=== PATIENT | male | born 1955 | race Caucasian/White ===

== ENCOUNTER 2022-04-04 00:14 | Inpatient (IN) | payer MEDICAID ==
[~2022-04-04] VITALS: Ht 160 cm; Wt 58.7 kg
[2022-04-04] VITALS (43 sets, daily range): BP systolic 119–153; BP diastolic 62–99
[2022-04-04] MEDS ORDERED: FUROSEMIDE 40MG/4ML VIAL IV ONE (00:30)
[2022-04-04] MEDS ORDERED: NITROGLYCERIN 50MG PREMIX 250 ML IV ONE ×2 (00:30→01:00)
[2022-04-04 00:56] LABS: BASOPHILS % 0.7 % (0.0-2.0); EOSINOPHILS % 3.2 % (0.0-5.0); HEMATOCRIT. 46.5 % (42.0-52.0); HEMOGLOBIN. 15.8 g/dL (14.0-18.0); LYMPHOCYTES % 23.1 % (20.0-50.0); MEAN CORPUSCULAR HEMOGLOBIN 30.9 pg (28.0-32.0); MEAN CORPUSCULAR VOLUME 91.2 fL (80.0-94.0); MEAN PLATELET VOLUME 8.8 fl (7.4-10.4); MONOCYTES % 6.6 % (2.0-8.0); NEUTROPHILS % 66.4 % (40.0-76.0); PLATELET 199 x1000/uL (130-400); RED CELL DISTRIBUTION WIDTH 13.3 % (11.6-14.6)
[2022-04-04] MEDS ORDERED: NITROGLYCERIN 50MG PREMIX 250 ML IV NR (01:00)
[2022-04-04 01:01] LABS: CHLORIDE 109 mEq/L (98-107)
[2022-04-04] MEDS ORDERED: HEPARIN 5000 UNITS/ML VIAL IV ONE (05:45)
[2022-04-04] MEDS ORDERED: HEPARIN 25,000 UNITS PREMIX 250 ML IV ONE (05:45)
[2022-04-04] MEDS ORDERED: HEPARIN BOLUS PRN aPTT <30 IV (06:00)
[2022-04-04] MEDS ORDERED: HEPARIN BOLUS PRN aPTT 30-44 IV (06:00)
[2022-04-04] MEDS: HEPARIN 60 UNITS/KG BOLUS IV NR ×2 (06:15→07:20)
[2022-04-04 06:24] LABS: PROTHROMBIN TIME 10.6 sec (9.6-11.0)
[2022-04-04] MEDS ORDERED: ACETAMINOPHEN 325MG TABLET PO PRN ×2 (10:30)
[2022-04-04] MEDS ORDERED: GUAIFENESIN 200MG/10ML SUGAR FREE UDC PO PRN (10:30)
[2022-04-04] MEDS ORDERED: HYDROCODONE/ACETAMINOPHEN 5/325MG TABLET PO PRN (10:30)
[2022-04-04] MEDS ORDERED: MAGNESIUM/ALUMINUM HYDROXIDE/SIMETHICONE 30ML UDC PO PRN (10:30)
[2022-04-04] MEDS ORDERED: IPRATROPIUM/ALBUTEROL 0.5-3(2.5)MG/3ML NEB HHN PRN (10:30)
[2022-04-04] MEDS ORDERED: ONDANSETRON HCL 4MG/2ML INJ IV PRN (10:30)
[2022-04-04] MEDS ORDERED: NA PHOS,M-B/NA PHOS,DI-BA ENEMA 118ML PR PRN (10:30)
[2022-04-04] MEDS ORDERED: CLONIDINE 0.1MG TABLET PO PRN (10:30)
[2022-04-04] MEDS ORDERED: DOCUSATE SODIUM 100MG CAPSULE PO PRN (10:30)
[2022-04-04] MEDS ORDERED: NALOXONE HCL 0.4MG/ML VIAL IV PRN (10:45)
[2022-04-04 13:20] LABS: D-DIMER 0.21 mg/L FEU (<0.50)
[2022-04-04] MEDS ORDERED: GABA-529 PO (13:52)
[2022-04-04] MEDS ORDERED: TOPUD PO (13:52)
[2022-04-04] MEDS ORDERED: TAMS-11 PO (14:45)
[2022-04-04] MEDS ORDERED: HEPARIN 25,000 UNITS PREMIX 250 ML IV SCH (15:15)
[2022-04-04] MEDS ORDERED: NITROGLYCERIN 50MG PREMIX 250 ML IV PRN ×2 (15:15)
[2022-04-04] MEDS: TAMSULOSIN HCL 0.4MG SR CAPSULE PO SCH (15:45)
[2022-04-04] MEDS: HEPARIN 25,000 UNITS PREMIX 250 ML IV SCH (16:45)
[2022-04-04 18:52] LABS: CREATINE KINASE MB FRACTION 5.5 ng/mL (0.5-3.6); PHOSPHORUS 2.9 mg/dL (2.5-4.9)
[2022-04-04] MEDS: FAMOTIDINE 20MG/2ML VIAL IV SCH (21:05)
[2022-04-04] MEDS: ATORVASTATIN CALCIUM 40MG TABLET PO SCH (21:05)
[2022-04-04] MEDS: GABAPENTIN 100MG CAPSULE PO SCH (21:05)
[2022-04-05] VITALS (92 sets, daily range): BP systolic 115–174; BP diastolic 60–128
[2022-04-05 00:26] LABS: CLARITY URINE CLEAR (CLEAR); COLOR URINE DARK YELLOW (YELLOW); KETONES URINE 1+ (NEGATIVE); LEUKOCYTE ESTERASE URINE TRACE (NEGATIVE); NITRITE URINE NEGATIVE (NEGATIVE); OCCULT BLOOD URINE NEGATIVE (NEGATIVE); PH URINE 5.5 (4.5-8.0); PROTEIN URINE TRACE (NEGATIVE); SPECIFIC GRAVITY URINE 1.022 (1.005-1.030)
[2022-04-05 00:43] LABS: *AMPHETAMINES SCREEN URINE NEGATIVE (NEGATIVE); *BARBITURATES SCREEN URINE NEGATIVE (NEGATIVE); *BENZODIAZEPINES SCREEN URINE NEGATIVE (NEGATIVE); *COCAINE SCREEN URINE NEGATIVE (NEGATIVE); CANNABINOID URINE SCREEN NEGATIVE (NEGATIVE); METHADONE URINE SCREEN NEGATIVE (NEGATIVE); OPIATES URINE SCREEN NEGATIVE (NEGATIVE); PHENCYCLIDINE URINE SCREEN NEGATIVE (NEGATIVE)
[2022-04-05 01:32] LABS: CREATINE KINASE MB FRACTION 3.8 ng/mL (0.5-3.6)
[2022-04-05 05:37] LABS: CHLORIDE 109 mEq/L (98-107)
[2022-04-05 05:37] LABS: BASOPHILS % 0.7 % (0.0-2.0); EOSINOPHILS % 2.3 % (0.0-5.0); HEMATOCRIT. 40.6 % (42.0-52.0); HEMOGLOBIN. 13.8 g/dL (14.0-18.0); LYMPHOCYTES % 18.2 % (20.0-50.0); MEAN CORPUSCULAR HEMOGLOBIN 30.8 pg (28.0-32.0); MEAN CORPUSCULAR VOLUME 90.4 fL (80.0-94.0); MONOCYTES % 6.6 % (2.0-8.0); NEUTROPHILS % 72.2 % (40.0-76.0); PLATELET 166 x1000/uL (130-400); RED BLOOD CELL COUNT 4.49 mill/uL (4.7-6.1); RED CELL DISTRIBUTION WIDTH 13.3 % (11.6-14.6)
[2022-04-05 05:43] LABS: CREATINE KINASE MB FRACTION 3.1 ng/mL (0.5-3.6)
[2022-04-05 05:55] LABS: HDL CHOLESTEROL 53 mg/dL (40-59); LDL CHOLESTEROL 112 mg/dL (5-100); T4 FREE 1.06 ng/dL (0.76-1.46)
[2022-04-05] MEDS ORDERED: PANTOPRAZOLE SODIUM 40 MG/VIAL IV SCH (06:00)
[2022-04-05 06:12] LABS: VITAMIN B12 SERUM 458 pg/mL (211-911)
[2022-04-05 06:25] LABS: FOLIC ACID (FOLATE) SERUM > 20.00 ng/mL (>5.38)
[2022-04-05] MEDS: GABAPENTIN 100MG CAPSULE PO SCH ×3 (06:34→21:33)
[2022-04-05] MEDS: FAMOTIDINE 20MG/2ML VIAL IV SCH ×2 (08:38→21:33)
[2022-04-05] MEDS: TAMSULOSIN HCL 0.4MG SR CAPSULE PO SCH (08:39)
[2022-04-05] MEDS ORDERED: POTASSIUM CHLORIDE 20MEQ TABLET SR PO SCH (09:00)
[2022-04-05] MEDS ORDERED: DEXT 5%/0.45% NACL 1000ML 1,000 ML IV ONE (10:00)
[2022-04-05] MEDS: ASPIRIN 81MG TABLET PO SCH (11:37)
[2022-04-05] MEDS: LOSARTAN POTASSIUM 25 MG TABLET PO SCH (11:37)
[2022-04-05] MEDS: FUROSEMIDE 40MG/4ML VIAL IVP SCH (11:38)
[2022-04-05] MEDS: HEPARIN 25,000 UNITS PREMIX 250 ML IV SCH (14:32)
[2022-04-05] MEDS: ATORVASTATIN CALCIUM 40MG TABLET PO SCH (21:33)
[2022-04-06] VITALS (97 sets, daily range): BP systolic 112–181; BP diastolic 60–126
[2022-04-06] MEDS: GABAPENTIN 100MG CAPSULE PO SCH ×3 (06:00→21:23)
[2022-04-06 06:19] LABS: HEMATOCRIT 41.9 % (42.0-52.0); HEMOGLOBIN 14.5 g/dL (14.0-18.0); MEAN CORPUSCULAR HEMOGLOBIN 31.3 pg (28.0-32.0); MEAN CORPUSCULAR VOLUME 90.6 fL (80.0-94.0); PLATELET 163 x1000/uL (130-400); RED BLOOD CELL COUNT 4.63 mill/uL (4.7-6.1); RED CELL DISTRIBUTION WIDTH 12.9 % (11.6-14.6)
[2022-04-06 06:26] LABS: CHLORIDE 108 mEq/L (98-107)
[2022-04-06] MEDS: CARVEDILOL 6.25 MG TABLET PO SCH ×2 (08:31→20:40)
[2022-04-06] MEDS: ISOSORBIDE MONONITRATE 30MG TABLET SR 24HR PO SCH (08:31)
[2022-04-06] MEDS: LOSARTAN POTASSIUM 25 MG TABLET PO SCH (08:31)
[2022-04-06] MEDS: TAMSULOSIN HCL 0.4MG SR CAPSULE PO SCH (08:31)
[2022-04-06] MEDS: ASPIRIN 81MG TABLET PO SCH (08:31)
[2022-04-06] MEDS: ENOXAPARIN 40MG/0.4ML SYR SUBCUT SCH (08:32)
[2022-04-06] MEDS: FUROSEMIDE 40MG/4ML VIAL IVP SCH (08:33)
[2022-04-06] MEDS: FAMOTIDINE 20MG/2ML VIAL IV SCH ×2 (08:33→20:39)
[2022-04-06] MEDS ORDERED: IODIXANOL 320MG/ML 100 ML BOTTLE IV ONE ×2 (09:44→09:50)
[2022-04-06] MEDS ORDERED: LIDOCAINE HCL/PF 1% 10 MG/ML 5ML VIAL ONE (09:45)
[2022-04-06] MEDS ORDERED: MIDAZOLAM HCL 2 MG/2 ML VIAL ONE (09:50)
[2022-04-06] MEDS ORDERED: FENTANYL CITRATE/PF 50MCG/ML 2ML VIAL ONE (09:50)
[2022-04-06] MEDS ORDERED: HEPARIN 1000 UNITS/ML 10ML ONE (09:50)
[2022-04-06] MEDS ORDERED: ATROPINE SULFATE 1MG/10ML SYR IV PRN (10:45)
[2022-04-06] MEDS: AMLODIPINE 5MG TABLET PO SCH (20:39)
[2022-04-06] MEDS: ATORVASTATIN CALCIUM 40MG TABLET PO SCH (20:40)
[2022-04-07] VITALS (25 sets, daily range): BP systolic 105–157; BP diastolic 58–92
[2022-04-07 05:29] LABS: BASOPHILS % 0.6 % (0.0-2.0); EOSINOPHILS % 2.6 % (0.0-5.0); HEMATOCRIT. 43.2 % (42.0-52.0); LYMPHOCYTES % 11.6 % (20.0-50.0); MEAN CORPUSCULAR VOLUME 89.6 fL (80.0-94.0); MEAN PLATELET VOLUME 8.9 fl (7.4-10.4); MONOCYTES % 9.3 % (2.0-8.0); NEUTROPHILS % 75.9 % (40.0-76.0); PLATELET 168 x1000/uL (130-400); RED BLOOD CELL COUNT 4.82 mill/uL (4.7-6.1); RED CELL DISTRIBUTION WIDTH 13.1 % (11.6-14.6)
[2022-04-07 05:37] LABS: CHLORIDE 106 mEq/L (98-107)
[2022-04-07 05:42] LABS: PHOSPHORUS 3.4 mg/dL (2.5-4.9)
[2022-04-07] MEDS: GABAPENTIN 100MG CAPSULE PO SCH (05:45)
[2022-04-07] MEDS: ASPIRIN 81MG TABLET PO SCH (08:06)
[2022-04-07] MEDS: AMLODIPINE 5MG TABLET PO SCH (08:06)
[2022-04-07] MEDS: FAMOTIDINE 20MG/2ML VIAL IV SCH (08:06)
[2022-04-07] MEDS: FUROSEMIDE 40MG/4ML VIAL IVP SCH (08:07)
[2022-04-07] MEDS: ISOSORBIDE MONONITRATE 30MG TABLET SR 24HR PO SCH (08:07)
[2022-04-07] MEDS: TAMSULOSIN HCL 0.4MG SR CAPSULE PO SCH (08:07)
[2022-04-07] MEDS: ENOXAPARIN 40MG/0.4ML SYR SUBCUT SCH (08:07)
[2022-04-07] MEDS: CARVEDILOL 6.25 MG TABLET PO SCH (08:07)
[2022-04-07] MEDS: LOSARTAN POTASSIUM 25 MG TABLET PO SCH (08:07)
[2022-04-07] MEDS ORDERED: LIP40 PO (10:10)
[2022-04-07] MEDS ORDERED: TAMS-11 PO (10:10)
[2022-04-07] MEDS ORDERED: COR6 PO (10:10)
[2022-04-07] MEDS ORDERED: ASPI-1160 PO (10:10)
[2022-04-07] MEDS ORDERED: AMLO5TAB88 PO (10:10)
[2022-04-07] MEDS ORDERED: LOSA25TA3 PO (10:10)
== END 2022-04-07 12:10 | disposition home or self-care (01) | DRG 192 ==
LOC: EDBD 00:14 → ER 00:14 → CVICU 02:05 → ENRESERV 10:13
PROVIDERS: ADMIT Internal Medicine; ATTEND Internal Medicine
PROC: 5A09357 Assistance with Respiratory Ventilation, Less than 24 Consecutive Hours, Continuous Positive Airway Pressure (ICD-10-PCS; principal; 2022-04-04)
PROC: 4A00X4Z Measurement of Central Nervous Electrical Activity, External Approach (ICD-10-PCS; 2022-04-05)
PROC: 4A023N7 Measurement of Cardiac Sampling and Pressure, Left Heart, Percutaneous Approach (ICD-10-PCS; 2022-04-06)
PROC: B2111ZZ Fluoroscopy of Multiple Coronary Arteries using Low Osmolar Contrast (ICD-10-PCS; 2022-04-06)
PROC: B2151ZZ Fluoroscopy of Left Heart using Low Osmolar Contrast (ICD-10-PCS; 2022-04-06)
DX: I11.0 Hypertensive heart disease with heart failure (principal); J96.01 Acute respiratory failure with hypoxia; E83.51 Hypocalcemia; I69.354 Hemiplegia and hemiparesis following cerebral infarction affecting left non-dominant side; D69.6 Thrombocytopenia, unspecified; Z20.822 Contact with and (suspected) exposure to COVID-19; I50.31 Acute diastolic (congestive) heart failure; I16.1 Hypertensive emergency; N40.0 Benign prostatic hyperplasia without lower urinary tract symptoms; E78.5 Hyperlipidemia, unspecified; R73.9 Hyperglycemia, unspecified; R78.5 Finding of other psychotropic drug in blood; I44.7 Left bundle-branch block, unspecified; Z28.310 Unvaccinated for COVID-19; Z79.899 Other long term (current) drug therapy
CPT/HCPCS: 36415; 71045; 80048; 80053; 80061; 80305; 81003; 82550; 82553; 82607; 82746; 83036; 83605; 83735; 83880; 84100; 84439; 84443; 84484; 85025; 85027; 85379; 86850; 86900; 87426; 87804; 93005; 93306; 93458; 93880; 93970; 95816; 99291; C1769; C1887; C1893; C9803; J1644; J1650; J1940; J2250; J3010; J3490; Q9967

== ENCOUNTER 2023-03-10 02:47 | Inpatient (IN) | payer MEDICAID ==
[2023-03-10] VITALS (60 sets, daily range): BP systolic 97–155; BP diastolic 56–102; PULSE 68–104; RESP 10–28; TEMP 97.9–99.2
[~2023-03-10] VITALS: Ht 162.6 cm; Wt 59.0 kg
[~2023-03-10 02:47] MED LIST: AMLO5TAB88 PO; ASPI-1160 PO; COR6 PO; GABA-529 PO; LIP40 PO; LOSA-412 PO; TAMS-11 PO; TOPUD PO
[2023-03-10] MEDS ORDERED: METHYLPREDNISOLONE SOD SUCC 125MG/2ML (ACT-O-VIAL) IV STA (02:59)
[2023-03-10] MEDS ORDERED: NITROGLYCERIN 50MG PREMIX 250 ML IV NR (03:15)
[2023-03-10] MEDS ORDERED: NITROGLYCERIN 50MG PREMIX 250 ML IV ONE (03:15)
[2023-03-10 03:21] LABS: BASOPHILS % 1.2 % (0.0-2.0); EOSINOPHILS % 2.4 % (0.0-5.0); HEMATOCRIT. 46.1 % (42.0-52.0); HEMOGLOBIN. 15.9 g/dL (14.0-18.0); LYMPHOCYTES % 21.1 % (20.0-50.0); MEAN CORPUSCULAR HEMOGLOBIN 31.7 pg (28.0-32.0); MEAN CORPUSCULAR HGB CONC 34.6 g/dL (31.0-37.0); MEAN CORPUSCULAR VOLUME 91.5 fL (80.0-94.0); MEAN PLATELET VOLUME 8.5 fl (7.4-10.4); MONOCYTES % 3.6 % (2.0-8.0); NEUTROPHILS % 71.7 % (40.0-76.0); PLATELET 210 x1000/uL (130-400); RED BLOOD CELL COUNT 5.03 mill/uL (4.7-6.1); RED CELL DISTRIBUTION WIDTH 13.2 % (11.6-14.6); WHITE BLOOD COUNT 7.9 x1000/uL (4.5-11.0)
[2023-03-10 03:34] LABS: ALANINE AMINOTRANSFERASE 7 IU/L (10-49); ALBUMIN 4.2 g/dL (3.2-4.8); ASPARTATE AMINOTRANSFERASE 18 IU/L (<34); BILIRUBIN TOTAL 1.1 mg/dL (0.1-1.0); CALCIUM 8.8 mg/dL (8.7-10.4); CARBON DIOXIDE 26 mEq/L (21-32); CHLORIDE 107 mEq/L (98-107); GLUCOSE 189 mg/dL (70-105); POTASSIUM 3.8 mEq/L (3.5-5.1); PROTEIN TOTAL 7.1 g/dL (6.0-8.3); SODIUM 142 mEq/L (136-145); UREA NITROGEN BLOOD 21 mg/dL (9-23)
[2023-03-10 04:01] LABS: TROPONIN I HIGH SENSITIVITY 587 ng/L (3.0-53)
[2023-03-10 06:26] LABS: TROPONIN I HIGH SENSITIVITY 2328 ng/L (3.0-53)
[2023-03-10] MEDS ORDERED: SODIUM CHLORIDE 0.9% 250 ML IV ONE (06:30)
[2023-03-10] MEDS ORDERED: AZITHROMYCIN 500MG/250ML 250 ML IV ONE (06:30)
[2023-03-10] MEDS ORDERED: HEPARIN 25,000 UNITS PREMIX 250 ML IV ONE (06:30)
[2023-03-10] MEDS ORDERED: CEFTRIAXONE 1GM PREMIX 50 ML IV ONE (06:30)
[2023-03-10] MEDS ORDERED: HEPARIN 5000 UNITS/ML VIAL IV ONE (06:30)
[2023-03-10] MEDS ORDERED: HEPARIN 5000 UNITS/ML VIAL IV SCH (07:00)
[2023-03-10 07:09] LABS: PARTIAL THROMBOPLASTIN TIME 29.1 sec (23.4-31.0); PROTHROMBIN TIME 10.8 sec (9.6-11.0)
[2023-03-10] MEDS ORDERED: HEPARIN 25,000 UNITS PREMIX 250 ML IV SCH (07:45)
[2023-03-10] MEDS ORDERED: CEFTRIAXONE 1GM PREMIX 50 ML IV SCH (08:00)
[2023-03-10] MEDS ORDERED: ACETAMINOPHEN 325MG TABLET PO PRN (09:00)
[2023-03-10] MEDS ORDERED: AZITHROMYCIN 500 MG in DEXT 5% WATER 250 ML IV SCH (09:00)
[2023-03-10] MEDS ORDERED: ONDANSETRON HCL 4MG/2ML INJ IV PRN (09:00)
[2023-03-10] MEDS ORDERED: DIPHENHYDRAMINE 50MG/ML VIAL IV PRN (09:00)
[2023-03-10 10:44] LABS: BG BASE EXCESS -0.5 mmol/L (-2.0-2.0); BG CARBOXYHEMOGLOBIN 0.3 % (0.5-1.5); BG FRACTION INSPIRED OXYGEN 100; BG HCO3 ACT 23.8 mmol/L (22.0-26.0); BG METHEMOGLOBIN 0.4 % (0.0-1.5); BG OXYHEMOGLOBIN 98.3 % (94.0-97.0); BG PCO2 38.3 mmHg (35.0-45.0); BG PH 7.411 (7.350-7.450); BG PO2 181.1 mmHg (75.0-100.0); BG SAMPLE SITE RIGHT RADIAL; BG TOTAL HEMOGLOBIN 15.5 g/dL (12.0-18.0); BG VENT MODE MASK - NRB
[2023-03-10] MEDS: MORPHINE SULFATE 2 MG/ML CPJ (NOT FOR IM USE) IV PRN ×2 (10:53→15:16)
[2023-03-10] MEDS ORDERED: HYDRALAZINE 20MG/ML VIAL IV PRN (11:45)
[2023-03-10] MEDS: AMLODIPINE 10MG TABLET PO SCH (12:40)
[2023-03-10] MEDS ORDERED: NITROGLYCERIN 50MG PREMIX 250 ML IV PRN (13:00)
[2023-03-10] MEDS ORDERED: HEPARIN BOLUS PRN aPTT 30-44 IV (14:00)
[2023-03-10] MEDS ORDERED: HEPARIN BOLUS PRN aPTT <30 IV (14:00)
[2023-03-10] MEDS ORDERED: ENOXAPARIN 80MG/0.8ML SYR SUBCUT SCH (14:00)
[2023-03-10 15:05] LABS: *AMPHETAMINES SCREEN URINE NEGATIVE (NEGATIVE); *BARBITURATES SCREEN URINE NEGATIVE (NEGATIVE); *BENZODIAZEPINES SCREEN URINE NEGATIVE (NEGATIVE); *COCAINE SCREEN URINE NEGATIVE (NEGATIVE); CANNABINOID URINE SCREEN NEGATIVE (NEGATIVE); ECSTASY MDMA SCREEN URINE NEGATIVE (NEGATIVE); METHADONE URINE SCREEN Neg (NEGATIVE); OPIATES URINE SCREEN PRESUMPTIVE POSITIVE (NEGATIVE); PHENCYCLIDINE URINE SCREEN NEGATIVE (NEGATIVE)
[2023-03-10] MEDS: ENOXAPARIN 80MG/0.8ML SYR SUBCUT SCH (15:14)
[2023-03-10] MEDS: HYDRALAZINE HCL 50MG TABLET PO SCH ×2 (15:14→21:31)
[2023-03-10] MEDS ORDERED: AZITHROMYCIN 500MG/250ML 250 ML IV SCH (16:00)
[2023-03-10] MEDS: FUROSEMIDE 40MG/4ML VIAL IVP SCH (16:26)
[2023-03-10 18:30] LABS: D-DIMER < 0.19 mg/L FEU (<0.50); PARTIAL THROMBOPLASTIN TIME 44.4 sec (23.4-31.0)
[2023-03-10 18:50] LABS: T4 FREE 1.01 ng/dL (0.89-1.76); THYROID STIMULATING HORMONE 0.47 uIU/mL (0.55-4.78)
[2023-03-10] MEDS: ATORVASTATIN CALCIUM 40MG TABLET PO SCH (21:29)
[2023-03-10] MEDS: TRAZODONE HCL 50MG TABLET PO SCH (21:29)
[2023-03-10] MEDS: GABAPENTIN 300MG CAPSULE PO SCH (21:29)
[2023-03-11] VITALS (46 sets, daily range): BP systolic 99–153; BP diastolic 54–95; PULSE 60–102; RESP 0–30; TEMP 98–98.8
[2023-03-11] MEDS: MORPHINE SULFATE 2 MG/ML CPJ (NOT FOR IM USE) IV PRN (04:43)
[2023-03-11 05:50] LABS: BASOPHILS % 0.7 % (0.0-2.0); EOSINOPHILS % 0.4 % (0.0-5.0); HEMATOCRIT. 40.7 % (42.0-52.0); HEMOGLOBIN. 13.7 g/dL (14.0-18.0); LYMPHOCYTES % 22.6 % (20.0-50.0); MEAN CORPUSCULAR HEMOGLOBIN 31.4 pg (28.0-32.0); MEAN CORPUSCULAR HGB CONC 33.7 g/dL (31.0-37.0); MEAN CORPUSCULAR VOLUME 93.2 fL (80.0-94.0); MEAN PLATELET VOLUME 8.9 fl (7.4-10.4); MONOCYTES % 7.7 % (2.0-8.0); NEUTROPHILS % 68.6 % (40.0-76.0); PLATELET 171 x1000/uL (130-400); RED BLOOD CELL COUNT 4.37 mill/uL (4.7-6.1); RED CELL DISTRIBUTION WIDTH 13.2 % (11.6-14.6); WHITE BLOOD COUNT 6.3 x1000/uL (4.5-11.0)
[2023-03-11 06:12] LABS: ALANINE AMINOTRANSFERASE 9 IU/L (10-49); ALBUMIN 3.8 g/dL (3.2-4.8); ASPARTATE AMINOTRANSFERASE 30 IU/L (<34); BILIRUBIN TOTAL 1.9 mg/dL (0.1-1.0); CALCIUM 8.8 mg/dL (8.7-10.4); CARBON DIOXIDE 30 mEq/L (21-32); CHLORIDE 106 mEq/L (98-107); CREATINE KINASE 226 IU/L (46-171); GLUCOSE 94 mg/dL (70-105); POTASSIUM 3.6 mEq/L (3.5-5.1); PROTEIN TOTAL 6.2 g/dL (6.0-8.3); SODIUM 142 mEq/L (136-145); UREA NITROGEN BLOOD 18 mg/dL (9-23)
[2023-03-11] MEDS: GABAPENTIN 300MG CAPSULE PO SCH ×3 (06:14→21:32)
[2023-03-11] MEDS: ENOXAPARIN 80MG/0.8ML SYR SUBCUT SCH (06:14)
[2023-03-11] MEDS: HYDRALAZINE HCL 50MG TABLET PO SCH ×3 (06:14→21:32)
[2023-03-11 06:53] LABS: TROPONIN I HIGH SENSITIVITY 5078 ng/L (3.0-53)
[2023-03-11] MEDS ORDERED: CEFTRIAXONE 1,000 MG in DEXTROSE 5% WATER 50 ML IV SCH (08:00)
[2023-03-11] MEDS: ASPIRIN 81MG TABLET PO SCH (08:49)
[2023-03-11] MEDS: AMLODIPINE 10MG TABLET PO SCH (08:54)
[2023-03-11] MEDS: FUROSEMIDE 40MG/4ML VIAL IVP SCH ×2 (08:55→17:45)
[2023-03-11] MEDS: FAMOTIDINE 20MG/2ML VIAL IV SCH (08:55)
[2023-03-11] MEDS: TAMSULOSIN HCL 0.4MG SR CAPSULE PO SCH (08:57)
[2023-03-11] MEDS ORDERED: NALOXONE HCL 0.4MG/ML VIAL IV PRN (12:30)
[2023-03-11] MEDS ORDERED: REGADENOSON 0.4 MG/5 ML IV SCH (13:30)
[2023-03-11] MEDS: ENOXAPARIN 60MG/0.6ML SYR SUBCUT SCH (17:45)
[2023-03-11] MEDS: ATORVASTATIN CALCIUM 40MG TABLET PO SCH (21:32)
[2023-03-11] MEDS: TRAZODONE HCL 50MG TABLET PO SCH (21:32)
[2023-03-12] VITALS: BP 118/72; PULSE 77; RESP 16; TEMP 98.4
[2023-03-12 04:00] VITALS: BP 139/81; PULSE 76; RESP 11; TEMP 98.4
[2023-03-12] MEDS: ENOXAPARIN 60MG/0.6ML SYR SUBCUT SCH ×2 (06:07→17:44)
[2023-03-12] MEDS: GABAPENTIN 300MG CAPSULE PO SCH ×2 (06:07→13:41)
[2023-03-12] MEDS: HYDRALAZINE HCL 50MG TABLET PO SCH ×2 (06:08→13:41)
[2023-03-12 08:00] VITALS: BP 130/69; PULSE 84; RESP 20; TEMP 97.2
[2023-03-12] MEDS ORDERED: REGADENOSON 0.4 MG/5 ML IV ONE (08:45)
[2023-03-12] MEDS ORDERED: TRAZ-251 PO (09:35)
[2023-03-12] MEDS ORDERED: HYDR-4135 PO (09:35)
[2023-03-12] MEDS ORDERED: GABA-532 PO (09:35)
[2023-03-12] MEDS ORDERED: LIP40 PO (09:35)
[2023-03-12] MEDS ORDERED: FURO40TA5 MT (09:35)
[2023-03-12] MEDS: TAMSULOSIN HCL 0.4MG SR CAPSULE PO SCH (09:47)
[2023-03-12] MEDS: AMLODIPINE 10MG TABLET PO SCH (09:47)
[2023-03-12] MEDS: FAMOTIDINE 20MG/2ML VIAL IV SCH (09:47)
[2023-03-12] MEDS: FUROSEMIDE 40MG/4ML VIAL IVP SCH ×2 (09:48→17:43)
[2023-03-12] MEDS: ASPIRIN 81MG TABLET PO SCH (09:48)
[2023-03-12 14:41] LABS: ALANINE AMINOTRANSFERASE 10 IU/L (10-49); ALBUMIN 4.2 g/dL (3.2-4.8); ASPARTATE AMINOTRANSFERASE 23 IU/L (<34); BILIRUBIN DIRECT 0.3 mg/dL (<=3.0); BILIRUBIN TOTAL 1.6 mg/dL (0.1-1.0); PROTEIN TOTAL 6.9 g/dL (6.0-8.3)
[2023-03-12 16:00] VITALS: BP 13/80; PULSE 88; RESP 20; TEMP 98
[2023-03-12 16:14] VITALS: BP 126/63; PULSE 91; TEMP 97.8; O2SAT 96
== END 2023-03-12 19:47 | disposition home or self-care (01) | DRG 190 ==
LOC: ER 02:47 → EDBEDREQSVC 05:13 → MICUSO 06:25 → EDBEDREQ 06:35 → EDBEDREQTM 06:35 → CVICU 09:02 → 3WST 03-11 12:17
PROVIDERS: ADMIT Internal Medicine; ATTEND Internal Medicine
PROC: 5A09357 Assistance with Respiratory Ventilation, Less than 24 Consecutive Hours, Continuous Positive Airway Pressure (ICD-10-PCS; principal; 2023-03-10)
DX: I21.4 Non-ST elevation (NSTEMI) myocardial infarction (principal); J96.01 Acute respiratory failure with hypoxia; I50.43 Acute on chronic combined systolic (congestive) and diastolic (congestive) heart failure; J18.9 Pneumonia, unspecified organism; I27.20 Pulmonary hypertension, unspecified; I11.0 Hypertensive heart disease with heart failure; I44.7 Left bundle-branch block, unspecified; Z20.822 Contact with and (suspected) exposure to COVID-19; I16.1 Hypertensive emergency; E78.5 Hyperlipidemia, unspecified; N40.0 Benign prostatic hyperplasia without lower urinary tract symptoms; M21.961 Unspecified acquired deformity of right lower leg
CPT/HCPCS: 36415; 36600; 71045; 71260; 78452; 80053; 80076; 80305; 82375; 82550; 82805; 82962; 83036; 83605; 83880; 84145; 84439; 84443; 84484; 85025; 85379; 87426; 93005; 93017; 93306; 93970; 94660; 99291; A9500; J0360; J0456; J0696; J1644; J1650; J1940; J2270; J2785; J2930; J3490; J7030; J7060

== ENCOUNTER 2023-10-17 18:47 | Emergency (ER) | payer MEDICAID ==
[~2023-10-17] VITALS: Ht 172.7 cm; Wt 80.0 kg
[~2023-10-17 18:47] MED LIST changes: +FURO40TA5 MT; -GABA-529 PO; +GABA-532 PO; +HYDR50TA39 PO; -LOSA-412 PO; +TRAZ-251 PO
[2023-10-17 18:58] VITALS: BP 164/76; PULSE 80; RESP 16; TEMP 98; O2SAT 99
[2023-10-17] MEDS: TRANEXAMIC ACID 1000MG PREMIX 100 ML IV NR (23:15)
[2023-10-17] MEDS ORDERED: TRANEXAMIC ACID 1,000 MG in SODIUM CHLORIDE 0.9% 100 ML IV ONE (23:15)
[2023-10-17] MEDS ORDERED: TRANEXAMIC ACID 1,000MG/10ML TP NR (23:30)
== END 2023-10-18 04:20 | disposition home or self-care (01) ==
LOC: ER 18:53
DX: S51.812A Laceration without foreign body of left forearm, initial encounter (principal); E11.9 Type 2 diabetes mellitus without complications; I10 Essential (primary) hypertension; Z86.73 Personal history of transient ischemic attack (TIA), and cerebral infarction without residual deficits; Z79.899 Other long term (current) drug therapy; X58.XXXA Exposure to other specified factors, initial encounter; Y93.89 Activity, other specified; Y92.89 Other specified places as the place of occurrence of the external cause; Y99.8 Other external cause status
CPT/HCPCS: 99283; Z7610 ×2; J7050

== ENCOUNTER 2023-10-18 10:08 | Emergency (ER) | payer MEDICAID ==
[~2023-10-18] VITALS: Ht 167.6 cm; Wt 65.7 kg
[2023-10-18 10:48] VITALS: O2SAT 98
[2023-10-18] MEDS: CLONIDINE 0.2MG TABLET PO ONE (12:36)
[2023-10-18 13:02] VITALS: BP 180/93; PULSE 110; RESP 16; TEMP 98.6
== END 2023-10-18 16:55 | disposition home or self-care (01) ==
LOC: ER 10:08
DX: I10 Essential (primary) hypertension (principal); E11.9 Type 2 diabetes mellitus without complications; Z88.8 Allergy status to other drugs, medicaments and biological substances; Z79.899 Other long term (current) drug therapy; Z86.73 Personal history of transient ischemic attack (TIA), and cerebral infarction without residual deficits
CPT/HCPCS: 99283